=== PATIENT | male | born 1990 | race African-American/Black ===

== ENCOUNTER 2024-06-21 10:56 | Emergency (ER) | payer MEDICAID ==
[~2024-06-21] VITALS: Ht 175.3 cm; Wt 99.3 kg
[2024-06-21 11:28] LABS: BILIRUBIN,URINE NEGATIVE (Neg); CLARITY,URINE CLEAR (Clear); COLOR,URINE YELLOW (Yellow); GLUCOSE, URINE NEGATIVE (Neg); KETONES,URINE 15 mg/dl (Neg); LEUKOCYTE ESTERASE ,URINE NEGATIVE (Neg); NITRITES, URINE NEGATIVE (Neg); OCCULT BLOOD,URINE NEGATIVE (Neg); PH,URINE 6.5 (4.8-8.0); PROTEIN,URINE TRACE mg/dl (Neg); UROBILINOGEN,URINE 0.2 E.U/dL (0.2-1.0)
[2024-06-21 11:36] LABS: BASOPHILS % (AUTO) 0.4 % (0-1); EOSINOPHILS % (AUTO) 0.2 % (0-6); HEMATOCRIT 43.2 % (42.0-52.0); HEMOGLOBIN 14.1 g/dl (14.0-17.9); LYMPHOCYTES # (AUTO) 1.8 X10'3 (1.1-4.8); LYMPHOCYTES % (AUTO) 30.7 % (21-51); MEAN CORPUSCULAR HEMOGLOBIN 26.8 PG (27.0-31.0); MEAN CORPUSCULAR HGB CONC 32.7 g/dL (33.0-36.5); MEAN CORPUSCULAR VOLUME 81.9 FL (78-98); MEAN PLATELET VOLUME 7.2 FL (7.4-10.4); MONOCYTES # (AUTO) 0.3 X10'3 (0-0.9); MONOCYTES % (AUTO) 5.2 % (2-12); NEUTROPHILS # (AUTO) 3.7 X10'3 (1.8-7.7); NEUTROPHILS % (AUTO) 63.5 % (42-75); PLATELET COUNT 375 X10'3 (140-440); RED BLOOD COUNT 5.28 X10'6 (4.70-6.10); RED CELL DISTRIBUTION WIDTH 17.4 % (11.5-14.5); WHITE BLOOD COUNT 5.8 X10'3 (4.5-11.0)
[2024-06-21] MEDS: ondansetron 4mg rapidly disintigrating tab PO ONE (11:40)
[2024-06-21 11:46] LABS: ALANINE AMINOTRANSFERASE 23 U/L (12-78); ALBUMIN 4.2 G/DL (3.4-5.0); ALKALINE PHOSPHATASE 67 IU/L (46-116); ANION GAP 14 (8-16); ASPARTATE AMINO TRANSFERASE 19 U/L (10-37); BILIRUBIN,TOTAL 0.4 MG/DL (0.1-1.0); BLOOD UREA NITROGEN 13 MG/DL (7-18); BUN/CREATININE RATIO 13.1 (10.0-20.0); CALCIUM 9.6 MG/DL (8.5-10.1); CHLORIDE 103 MMOL/L (99-107); CREATININE 0.99 MG/DL (0.60-1.10); GLUCOSE 96 MG/DL (70-104); LIPASE 20 U/L (16-77); SODIUM 142 MMOL/L (135-145); TOTAL CARBON DIOXIDE 25.3 MMOL/L (24-32); TOTAL PROTEIN 8.4 G/DL (6.4-8.2); eCRCL 106 ML/MIN; eGFR 87 ML/MIN
[2024-06-21 11:53] LABS: UA COLLECTION TYPE CLN CATCH MIDSTREAM
[2024-06-21] MEDS ORDERED: ONDA-245 PO (11:53)
[2024-06-21 11:55] LABS: BACTERIA,URINE 1+ /HPF (Neg); MUCUS STRANDS MANY /LPF (Neg); RBC,URINE NONE SEEN /HPF (0-2); SQUAMOUS EPITHELIAL CELL,UR FEW /LPF (FEW)
[2024-06-21 12:03] VITALS: BP 144/74; PULSE 72; RESP 17; TEMP 98.9; O2SAT 99
== END 2024-06-21 12:04 | disposition home or self-care (01) ==
LOC: ER 10:57
DX: R11.10 Vomiting, unspecified (principal)
CPT/HCPCS: 36415; 80053; 81001; 83690; 85025; 87088; 99283

== ENCOUNTER 2024-07-11 10:49 | Emergency (ER) | payer MEDICAID ==
[~2024-07-11] VITALS: Ht 175.3 cm; Wt 95.5 kg
[~2024-07-11 10:49] MED LIST: ONDA-245 PO
[2024-07-11] MEDS: ketorolac trometh 15mg/ml vial 15 MG/ML ML IV ONE (11:14)
[2024-07-11] MEDS: ondansetron/PF 4mg/2ml inj IV ONE (11:14)
[2024-07-11] MEDS: normal saline 1000ML IV soln IVB ONE (11:15)
[2024-07-11 11:27] LABS: BASOPHILS % (AUTO) 0.6 % (0-1); EOSINOPHILS # (AUTO) 0.1 X10'3 (0-0.9); EOSINOPHILS % (AUTO) 0.9 % (0-6); HEMATOCRIT 40.6 % (42.0-52.0); HEMOGLOBIN 13.1 g/dl (14.0-17.9); LYMPHOCYTES # (AUTO) 2.7 X10'3 (1.1-4.8); LYMPHOCYTES % (AUTO) 37.1 % (21-51); MEAN CORPUSCULAR HEMOGLOBIN 26.3 PG (27.0-31.0); MEAN CORPUSCULAR HGB CONC 32.2 g/dL (33.0-36.5); MEAN CORPUSCULAR VOLUME 81.8 FL (78-98); MEAN PLATELET VOLUME 7.5 FL (7.4-10.4); MONOCYTES # (AUTO) 0.7 X10'3 (0-0.9); MONOCYTES % (AUTO) 10.1 % (2-12); NEUTROPHILS # (AUTO) 3.7 X10'3 (1.8-7.7); NEUTROPHILS % (AUTO) 51.3 % (42-75); PLATELET COUNT 411 X10'3 (140-440); RED BLOOD COUNT 4.96 X10'6 (4.70-6.10); RED CELL DISTRIBUTION WIDTH 16.8 % (11.5-14.5); WHITE BLOOD COUNT 7.2 X10'3 (4.5-11.0)
[2024-07-11 11:38] LABS: ALBUMIN 3.7 G/DL (3.4-5.0); ANION GAP 6 (8-16); BLOOD UREA NITROGEN 11 MG/DL (7-18); BUN/CREATININE RATIO 10.2 (10.0-20.0); CHLORIDE 105 MMOL/L (99-107); CREATININE 1.08 MG/DL (0.60-1.10); GLUCOSE 85 MG/DL (70-104); LIPASE 22 U/L (16-77); MAGNESIUM 1.9 MG/DL (1.5-2.4); POTASSIUM 3.3 MMOL/L (3.5-5.1); SODIUM 143 MMOL/L (135-145); TOTAL CARBON DIOXIDE 32.2 MMOL/L (24-32); eCRCL 97 ML/MIN; eGFR > 90 ML/MIN
[2024-07-11] MEDS: magnesium oxide 400mg tablet PO ONE (12:52)
[2024-07-11] MEDS: potassium Cl 20 mEq SR tablet PO ONE (12:52)
[2024-07-11 13:33] VITALS: BP 101/58; PULSE 74; RESP 12; TEMP 97.7; O2SAT 99
== END 2024-07-11 13:10 | disposition home or self-care (01) ==
LOC: ER 10:49
DX: R11.2 Nausea with vomiting, unspecified (principal); E87.6 Hypokalemia; T40.495A Adverse effect of other synthetic narcotics, initial encounter; G89.29 Other chronic pain; F17.200 Nicotine dependence, unspecified, uncomplicated; F12.90 Cannabis use, unspecified, uncomplicated; Z72.89 Other problems related to lifestyle; Z59.00 Homelessness unspecified; Y92.89 Other specified places as the place of occurrence of the external cause
CPT/HCPCS: 36415; 80048; 83690; 83735; 85025; 96361; 96374; 96375; 99285; J1885; J2405; J7030

== ENCOUNTER 2024-07-19 03:15 | Emergency (ER) | payer MEDICAID ==
[~2024-07-19] VITALS: Ht 175.3 cm; Wt 98.6 kg
[2024-07-19 06:37] VITALS: BP 109/65; PULSE 68; RESP 14; TEMP 98; O2SAT 100
== END 2024-07-19 06:48 | disposition home or self-care (01) ==
LOC: ER 03:16
DX: M79.604 Pain in right leg (principal); M79.605 Pain in left leg; G89.29 Other chronic pain; F12.90 Cannabis use, unspecified, uncomplicated; Z59.00 Homelessness unspecified; Z72.89 Other problems related to lifestyle
CPT/HCPCS: 99281

== ENCOUNTER 2024-08-09 13:58 | Emergency (ER) | payer MEDICAID ==
[~2024-08-09] VITALS: Ht 177.8 cm; Wt 79.0 kg
[2024-08-09 14:01] VITALS: TEMP 98.6
[2024-08-09] MEDS ORDERED: NAFT45CR TOP (14:37)
[2024-08-09] MEDS ORDERED: FLUC200T PO (14:37)
[2024-08-09 14:51] VITALS: BP 101/53; PULSE 63; RESP 18; O2SAT 97
== END 2024-08-09 14:52 | disposition home or self-care (01) ==
LOC: ER 13:58
DX: B35.3 Tinea pedis (principal); B36.0 Pityriasis versicolor; F12.90 Cannabis use, unspecified, uncomplicated; Z88.3 Allergy status to other anti-infective agents
CPT/HCPCS: 99283

== ENCOUNTER 2024-10-17 10:39 | Emergency (ER) | payer MEDICAID ==
[~2024-10-17] VITALS: Ht 175.3 cm; Wt 97.1 kg
[~2024-10-17 10:39] MED LIST changes: +FLUC200T PO; +NAFT45CR TOP
[2024-10-17 10:44] VITALS: PULSE 80; TEMP 97.8
[2024-10-17] MEDS: dexamethasone sod phosphate 10mg/ml inj PO STA (13:01)
[2024-10-17] MEDS: proMETHazine DM oral syrup 5ml UD PO STA ×2 (13:02→13:26)
[2024-10-17] MEDS: dexamethasone sod phosphate 10mg/ml inj IM STA (13:25)
[2024-10-17] MEDS ORDERED: CEPH-585 PO (13:31)
[2024-10-17] MEDS ORDERED: ALBU8HFA INH (13:31)
[2024-10-17] MEDS ORDERED: PRED20TA PO (13:31)
[2024-10-17 13:41] VITALS: RESP 18
== END 2024-10-17 13:44 | disposition home or self-care (01) ==
LOC: ER 10:39
DX: L03.114 Cellulitis of left upper limb (principal); R05.9 Cough, unspecified; F12.90 Cannabis use, unspecified, uncomplicated; Z79.899 Other long term (current) drug therapy; Z88.6 Allergy status to analgesic agent; Z87.891 Personal history of nicotine dependence
CPT/HCPCS: 71045; 73130; 96372; 99284; J1100

== ENCOUNTER 2024-11-16 14:08 | Emergency (ER) | payer MEDICAID ==
[~2024-11-16] VITALS: Ht 175.3 cm; Wt 96.2 kg
[~2024-11-16 14:08] MED LIST changes: +ALBU8HFA INH
[2024-11-16 14:10] VITALS: BP 130/83; PULSE 76; RESP 16; TEMP 98; O2SAT 97
== END 2024-11-16 15:30 | disposition home or self-care (01) ==
LOC: ER 14:09
DX: M79.642 Pain in left hand (principal); F12.90 Cannabis use, unspecified, uncomplicated; Z88.6 Allergy status to analgesic agent; Z88.5 Allergy status to narcotic agent; Z88.8 Allergy status to other drugs, medicaments and biological substances
CPT/HCPCS: 73130; 99283

== ENCOUNTER 2024-12-28 11:54 | Emergency (ER) | payer MEDICAID ==
[~2024-12-28] VITALS: Ht 172.7 cm; Wt 68.2 kg
[~2024-12-28 11:54] MED LIST changes: -ALBU8HFA INH
[2024-12-28 12:27] VITALS: BP 156/84; PULSE 71; RESP 18; O2SAT 100
[2024-12-28] MEDS: proparacaine 0.5% ophthalmic drops 15ml EACHEYE ONE (13:35)
[2024-12-28] MEDS ORDERED: CIPR2.5D21 LEFTEYE (13:40)
[2024-12-28 13:57] VITALS: TEMP 97.7
== END 2024-12-28 13:58 | disposition home or self-care (01) ==
LOC: ER 11:54
DX: S05.01XA Injury of conjunctiva and corneal abrasion without foreign body, right eye, initial encounter (principal); S05.02XA Injury of conjunctiva and corneal abrasion without foreign body, left eye, initial encounter; F12.90 Cannabis use, unspecified, uncomplicated; Z88.8 Allergy status to other drugs, medicaments and biological substances; X58.XXXA Exposure to other specified factors, initial encounter; Y93.89 Activity, other specified; Y92.89 Other specified places as the place of occurrence of the external cause; Y99.8 Other external cause status
CPT/HCPCS: 99283

== ENCOUNTER 2025-01-24 12:41 | Emergency (ER) | payer MEDICAID ==
[~2025-01-24] VITALS: Ht 175.3 cm; Wt 79.5 kg
[2025-01-24 13:08] VITALS: BP 151/76; PULSE 68; RESP 18; TEMP 98.2; O2SAT 98
[2025-01-24] MEDS ORDERED: CLOT12CR TOP (15:43)
[2025-01-24] MEDS ORDERED: CARB-268 RIGHTEYE (15:43)
== END 2025-01-24 16:04 | disposition home or self-care (01) ==
LOC: ER 12:42
DX: H11.421 Conjunctival edema, right eye (principal); B35.3 Tinea pedis; F12.90 Cannabis use, unspecified, uncomplicated; G89.29 Other chronic pain; Z59.00 Homelessness unspecified; Z88.3 Allergy status to other anti-infective agents; Z88.8 Allergy status to other drugs, medicaments and biological substances; Z79.899 Other long term (current) drug therapy
CPT/HCPCS: 99282; 99283

== ENCOUNTER 2025-02-01 13:33 | Emergency (ER) | payer MEDICAID ==
[~2025-02-01] VITALS: Ht 172.7 cm; Wt 93.2 kg
[~2025-02-01 13:33] MED LIST changes: +CARB-268 RIGHTEYE; +CLOT12CR TOP
[2025-02-01 13:58] VITALS: BP 149/88; PULSE 90; RESP 16; TEMP 98.2; O2SAT 99
[2025-02-01] MEDS ORDERED: AMOX-117 PO (14:54)
[2025-02-01] MEDS ORDERED: PSEU120T56 PO (14:54)
[2025-02-01] MEDS ORDERED: FLUT16SP2 BOTHNARES (14:54)
== END 2025-02-01 15:03 | disposition home or self-care (01) ==
LOC: ER 13:34
DX: J32.9 Chronic sinusitis, unspecified (principal); Z88.8 Allergy status to other drugs, medicaments and biological substances; Z79.899 Other long term (current) drug therapy
CPT/HCPCS: 99283

== ENCOUNTER 2025-04-05 01:12 | Emergency (ER) | payer MEDICAID ==
[~2025-04-05] VITALS: Ht 175.3 cm; Wt 90.9 kg
[~2025-04-05 01:12] MED LIST changes: +FLUT16SP2 BOTHNARES; +PSEU120T56 PO
--- NOTE | 2025-04-05 02:11 | Physician Documentation ---
History of Present Illness ~ Chief Complaint: Rash Stated Complaint: YEAST INFECTION Time Seen by MD: 02:10 Primary Medical Doctor: NONE HPI Patient presents to the emergency room for evaluation of bilateral foot pain that has been going on for the past year. Denies history of diabetes. Described it as burning. He said it got worse this evening therefore he came in to be evaluated Medication Reconciliation Allergies: Coded Allergies: acetaminophen (Verified Allergy, Unknown, 04/05/25) buprenorphine (Unverified Adverse Reaction, Mild, vomiting, 04/05/25) naloxone (Unverified Adverse Reaction, Mild, vomiting, 04/05/25) Scheduled Carboxymethylcellulose Sodium (Artificial Tears), 1 DROP RIGHTEYE Q6H Clotrimazole (Lotrimin Af), 1 APPLIC TOP Q12H Fluconazole (Diflucan), 1 TAB PO DAILY Fluticasone Propionate (Flonase), 2 SPRAYS BOTHNARES DAILY Naftifine HCl (Naftifine HCl), 1 APPLIC TOP Q12H Pseudoephedrine HCl (Sudafed 12 Hour), 1 TAB PO Q12H Scheduled PRN Ondansetron 8mg ODT (Ondansetron Odt), 1 TAB PO TID PRN for nausea/vomiting Past Medical History Past Medical History: Chronic Pain Past Surgical History: no surgical history Alcohol Use: Occasionally Drug Use: marijuana Lives In: Homeless Review of Systems ROS All review of systems negative except as per HPI Physical Exam Vital Signs: Temperature: 98.4, Heart Rate: 55, Respiratory Rate: 15, BP: 143 /74, Pulse Oximetry: 99, Weight: 90.910 Physical Exam General: Patient is awake, alert, oriented x4 in no acute distress and well appearing.~ Head: Normocephalic and atraumatic. Eyes: Conjunctival normal. EOMI. PERRL. ENT: Mucous membranes moist. Neck: Supple, trachea is midline. Chest: Clear to auscultation bilaterally without rales, rhonchi, or wheezes. The re is no accessory muscle use or retractions. Cardiac: RRR without murmurs, gallops, or rubs. Extremities: Feet with mild erythema but no ulcers. Neurovascularly intact Progress Results/Orders Results/Orders Vital Signs 04/05/25 04/05/25 01:19 01:55 Temp 98.4 Pulse 91 55 Resp 19 15 B/P (MAP) 155/86 143/74 (97) Pulse Ox 98 99 Medical Decision Making Findings Patient presents to the emergency room with foot pain as per HPI. Differentials include but are not limited to peripheral neuropathy, fungal infection, trauma, foreign body. Given history and physical exam and he had not feel any labs or imaging is necessary. We will empirically treat for fungal infection with ER precautions discussed. Departure Disposition: HOME / SELF CARE / HOMELESS Impression: Primary Impression: Tinea pedis Condition: Stable Discharge Instructions: Athlete's Foot, [place] Referrals: NO PRIMARY CARE PROVIDER (PCP) Prescriptions Nystatin (Nystatin) 100,000 Unit/Gram Cream.gm. 1 APPLIC TOP Q12H for 7 Days, #30 GM 0 Refills apply to affected area(s) Prov: STEVE MARTÍNEZ MD 04/05/25 Education Educated: Patient Educated regarding: diagnosis, treatment, need for follow up Signature Scribe Signature: No scribe Attestation: The note accurately reflects work and decisions made by me.Steve Martínez MD 04/05/25 02:15 STEVE MARTÍNEZ MD Apr 05, 2025 02:11
[2025-04-05] MEDS ORDERED: NYST15CR TOP (02:15)
[2025-04-05 02:39] VITALS: BP 136/80; PULSE 74; RESP 16; TEMP 98.1; O2SAT 99
== END 2025-04-05 02:40 | disposition home or self-care (01) ==
LOC: ER 01:14
DX: B35.3 Tinea pedis (principal); F12.90 Cannabis use, unspecified, uncomplicated; Z88.8 Allergy status to other drugs, medicaments and biological substances; Z79.899 Other long term (current) drug therapy; Z72.89 Other problems related to lifestyle; Z59.00 Homelessness unspecified
CPT/HCPCS: 99283

== ENCOUNTER 2025-04-15 20:31 | Emergency (ER) | payer MEDICAID ==
[~2025-04-15] VITALS: Ht 177.8 cm; Wt 69.4 kg
[~2025-04-15 20:31] MED LIST changes: +NYST15CR TOP
--- NOTE | 2025-04-15 23:31 | Physician Documentation ---
History of Present Illness ~ Chief Complaint: Cold, cough & congestion Stated Complaint: COLD SYMPTOMS Time Seen by MD: 22:20 Primary Medical Doctor: NONE HPI This is a 35-year-old male who presents with six days of productive cough and nasal congestion, patient reports others around him and in his household or also sick with similar symptoms. Patient reports no chest pain, shortness of breath, or hemoptysis. Patient reports subjective fever at home at the beginning of course of symptoms that resolved after taking acetaminophen. Patient reports no other acute symptoms or concerns. Medication Reconciliation Allergies: Coded Allergies: acetaminophen (Verified Allergy, Unknown, 04/05/25) buprenorphine (Unverified Adverse Reaction, Mild, vomiting, 04/05/25) naloxone (Unverified Adverse Reaction, Mild, vomiting, 04/05/25) Scheduled Carboxymethylcellulose Sodium (Artificial Tears), 1 DROP RIGHTEYE Q6H Clotrimazole (Lotrimin Af), 1 APPLIC TOP Q12H Fluconazole (Diflucan), 1 TAB PO DAILY Fluticasone Propionate (Flonase), 2 SPRAYS BOTHNARES DAILY Guaifenesin (Guaifenesin), 1 TAB PO Q8H Naftifine HCl (Naftifine HCl), 1 APPLIC TOP Q12H Nystatin (Nystatin), 1 APPLIC TOP Q12H Pseudoephedrine HCl (Sudafed 12 Hour), 1 TAB PO Q12H Scheduled PRN Benzonatate* (Benzonatate*), 1-2 CAP PO Q8H PRN for cough & congestion Ondansetron 8mg ODT (Ondansetron Odt), 1 TAB PO TID PRN for nausea/vomiting Past Medical History Past Medical History: Chronic Pain Past Surgical History: no surgical history Alcohol Use: Occasionally Drug Use: marijuana Lives In: Homeless Review of Systems ROS Chest congestion, cough, nasal congestion as stated above in the HPI, otherwise all systems are reviewed and negative. Physical Exam Vital Signs: Temperature: 99.1, Source: Temporal, Heart Rate: 85, Respiratory Rate: 18, BP: 117/84, Pulse Oximetry: 98, Weight: 69.400 Oxygen Flow Rate: 0 Physical Exam VITALS: Reviewed and as above. GENERAL: Alert, nontoxic appearing, no apparent distress. HEENT: No facial swelling, PERRLA, RESPIRATORY: No increased work of breathing, no respiratory distress, speaking in full clear sentences, clear lung sounds in all mortensen CV: Regular rate and rhythm no murmur Progress Results/Orders Results/Orders Vital Signs 04/15/25 04/15/25 20:41 23:36 Temp 99.1 98.6 Pulse 85 80 Resp 18 16 B/P (MAP) 117/84 118/86 Pulse Ox 98 98 O2 Flow Rate 0 Medical Decision Making Findings This otherwise healthy and well appearing 35-year-old male presented with productive cough, chest congestion, and nasal congestion, consistent with URI symptoms likely of viral etiology. Patient is otherwise well appearing, non- toxic, and well hydrated. Physical exam benign including clear lung sounds in all mortensen, no respiratory distress or increased work of breathing. Vital signs stable without hypoxia, room air SpO2 of 98 % interpreted as normal and adequate, non-tachypneic, non-tachycardic, normotensive. Patient is appropriate for outpatient follow up. Antibiotics not indicated due to low suspicion for bacterial etiology. Home care instructions, follow up instructions, and return to care precautions discussed with the patient who verbalized understanding. Differential Dx:Considerations: Include: Allergic rhinitis, Influenza, Otitis media, Peritonsillar abscess, Pneumonia, Pnuemonitis, Sinusitis Departure Disposition: HOME / SELF CARE / HOMELESS Impression: Primary Impression: Acute respiratory infection Condition: Improved Discharge Instructions: Upper Respiratory Infection, Adult Additional Instructions: Please take the guaifenesin daily to help clear your chest congestion, warm liquids and honey may also help with her cough. I recommend you continue exercise and warm steamy showers to help clear chest congestion. For cough that disturbs your sleep use the prescribed Tessalon Perles. Please follow up with your primary care provider in the next few days. Please return to the emergency department for any new or worsening concerning symptoms including but not limited to worsening shortness of breath, chest pain, or if you develop a fever over 100.4 that does not lower with ibuprofen or Tylenol. Referrals: NO PRIMARY CARE PROVIDER (PCP) Prescriptions Benzonatate* (Benzonatate*) 100 Mg Capsule 1-2 CAP PO Q8H PRN for cough & congestion MDD 600 for 5 Days, #30 CAP Prov: LASHA DOSHI 04/15/25 Guaifenesin (Guaifenesin) 400 Mg Tablet 1 TAB PO Q8H for cough for 5 Days, #15 TAB 0 Refills Prov: LASHA DOSHI 04/15/25 Education Educated: Patient Educated regarding: diagnosis, treatment, prognosis, need for follow up Signature Scribe Signature: No scribe Attestation: The note accurately reflects work and decisions made by me.JAYNE Soriano 04/16/25 02:16 LASHA DOSHI Apr 15, 2025 23:31
[2025-04-15] MEDS ORDERED: GUAI400T92 PO (23:33)
[2025-04-15] MEDS ORDERED: BENZ-38 PO (23:33)
[2025-04-15 23:36] VITALS: BP 118/86; PULSE 80; RESP 16; TEMP 98.6; O2SAT 98
== END 2025-04-15 23:37 | disposition home or self-care (01) ==
LOC: ER 20:31
DX: J22 Unspecified acute lower respiratory infection (principal); F12.90 Cannabis use, unspecified, uncomplicated; Z88.8 Allergy status to other drugs, medicaments and biological substances; Z79.899 Other long term (current) drug therapy; Z72.89 Other problems related to lifestyle; Z59.00 Homelessness unspecified
CPT/HCPCS: 99283